=== PATIENT | male | born 1955 ===

== ENCOUNTER 2021-02-15 01:21 | Outpatient (CLI) | payer MEDICARE, BC | END 2021-02-15 01:22 | disposition critical access hospital (66) | LOC: EMS 01:21 | DX: R41.0 Disorientation, unspecified (principal); S80.212A Abrasion, left knee, initial encounter; S80.211A Abrasion, right knee, initial encounter; S60.512A Abrasion of left hand, initial encounter; S60.511A Abrasion of right hand, initial encounter; S00.81XA Abrasion of other part of head, initial encounter; W18.30XA Fall on same level, unspecified, initial encounter; Y92.414 Local residential or business street as the place of occurrence of the external cause | CPT/HCPCS: A0425; A0429 ==

== ENCOUNTER 2021-02-15 01:44 | Inpatient (IN) | payer MEDICARE, BC ==
[2021-02-15 02:06] LABS: BASOPHILS % (AUTO) 0.6 %; EOSINOPHILS % (AUTO) 0.8 %; HCT - HEMATOCRIT 38.2 % (42.0-52.0); LYMPHOCYTES # (AUTO) 0.6 10^3/uL (1.5-3.5); LYMPHOCYTES % (AUTO) 13.4 %; MEAN CORPUSCULAR HEMOGLOBIN 33.9 pg (27.0-31.0); MEAN CORPUSCULAR VOLUME 99.7 fL (80.0-94.0); MEAN PLATELET VOLUME 10.7 fL (7.4-11.4); MONOCYTES # (AUTO) 0.6 10^3/uL (0.0-1.0); MONOCYTES % (AUTO) 13.2 %; NEUTROPHILS # (AUTO) 3.4 10^3/uL (1.5-6.6); NEUTROPHILS % (AUTO) 71.8 %; PLT - PLATELET COUNT 81 10^3/uL (130-450); RED BLOOD COUNT 3.83 10^6/uL (4.70-6.10); RED CELL DISTRIBUTION WIDTH 12.3 % (12.0-15.0); WHITE BLOOD COUNT 4.8 x10^3/uL (4.8-10.8)
[2021-02-15] MEDS ORDERED: THIAMINE 100 MG/1 ML 2 ML MDV ONE (02:25)
[2021-02-15] MEDS ORDERED: FOLIC ACID 5 MG/1 ML 10ML MDV ONE (02:26)
[2021-02-15] MEDS ORDERED: LORazepam 2 MG/ML VIAL IVP STA ×4 (03:48→08:36)
[2021-02-15 03:56] LABS: ALBUMIN 3.9 g/dL (3.2-5.5); ALBUMIN/GLOBULIN RATIO 1.1 (1.0-2.2); BILIRUBIN,TOTAL 2.6 mg/dL (0.2-1.0); CALCIUM 8.9 mg/dL (8.5-10.3); POTASSIUM 3.7 mmol/L (3.5-5.0); TOTAL PROTEIN 7.4 g/dL (6.7-8.2)
[2021-02-15] MEDS ORDERED: LORazepam 2 MG/ML VIAL ONE (03:57)
[2021-02-15 04:02] LABS: MUDS CUTOFF CONCENTRATIONS CUTOFF CONC BELOW:
[2021-02-15 04:03] LABS: CLARITY,URINE CLEAR (CLEAR)
[2021-02-15 04:04] LABS: AMPHETAMINE SCREEN,URINE NEGATIVE (NEGATIVE); BARBITURATE SCREEN,UR NEGATIVE (NEGATIVE); BENZODIAZEPINES SCREEN, URINE POSITIVE (NEGATIVE); BILIRUBIN,URINE NEGATIVE (NEGATIVE); COCAINE SCREEN URINE NEGATIVE (NEGATIVE); GLUCOSE, URINE (UA) NEGATIVE (NEGATIVE); KETONES,URINE (UA) TRACE mg/dL (NEGATIVE); LEUKOCYTE ESTERASE, URINE NEGATIVE (NEGATIVE); METHADONE SCREEN, URINE NEGATIVE (NEGATIVE); METHAMPHETAMINES SCREEN, URINE NEGATIVE (NEGATIVE); NITRITE,URINE NEGATIVE (NEGATIVE); OCCULT BLOOD,URINE NEGATIVE (NEGATIVE); OPIATE SCREEN, URINE NEGATIVE (NEGATIVE); OXYCODONE SCREEN, URINE NEGATIVE (NEGATIVE); PH,URINE 6.5 PH (5.0-7.5); PROPOXYPHENE SCREEN, URINE NEGATIVE (NEGATIVE); PROTEIN,URINE NEGATIVE (NEGATIVE); THC CANNABINOID SCREEN, URINE NEGATIVE (NEGATIVE); TRICYCLIC ANTIDEPRESSANT,URINE NEGATIVE (NEGATIVE); UROBILINOGEN,URINE 4 E.U./dL (NORMAL)
--- NOTE | 2021-02-15 04:43 | ED Physician Documentation ---
History of Present Illness - Stated complaint Stated Complaint: ETOH/ HEAD INJ - Chief complaint Chief Complaint: Laceration - History obtained from History obtained from: Patient, EMS - History of Present Illness Timing: Today - Additonal information Additional information: 65-year-old male is brought to the emergency department today by ambulance after he left the [facility] center in [place]. He is unable to tell us how long he has been there or what he is doing there. Is apparently getting treatment for alcohol and he voluntarily left the facility was found outside having fallen and injured himself. He comes into the emergency department with scrapes on his knees his feet his arms and his face. He denies any loss of consciousness. Review of Systems Unable to obtain: Confused Constitutional: denies: Fever Eyes: denies: Decreased vision Ears: denies: Ear pain Nose: denies: Congestion Throat: denies: Sore throat Cardiac: denies: Chest pain / pressure, Palpitations Respiratory: denies: Dyspnea GI: denies: Abdominal Pain, Nausea, Vomiting, Constipation, Diarrhea : denies: Dysuria, Frequency Skin: denies: Rash Musculoskeletal: denies: Neck pain, Back pain, Extremity pain PD PAST MEDICAL HISTORY - Present Medications Home Medications: Ambulatory Orders Medication Instructions Recorded Confirmed Home Medications Unobtainable 02/15/21 02/15/21 [HOME MEDICATIONS UNOBTAINABLE] - Allergies Allergies/Adverse Reactions: Allergies Allergy/AdvReac Type Severity Reaction Status Date / Time No Known Drug Allergies Allergy Verified 02/15/21 01:59 - Social History Does the pt smoke?: No Smoking Status: Unknown if ever smoked PD ED PE NORMAL - Vitals Vital signs reviewed: Yes (tachycardic and hypertensive ) - General General: No acute distress, Well developed/nourished, Other (thinks he's in [place]. There is some speech latency and some delay in execution of motor commands. When he arrives he does not have the shakes and he develops this during the visit consistent with alochol withdrawal. 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 2-12 intact, No motor deficit, No sensory deficit, Normal speech Eye Opening: Spontaneous Motor: Obeys Commands Verbal: Confused GCS Score: 14 - Psych Psych: Normal mood, Normal affect Results - Vitals Vitals: Vital Signs - 24 hr 02/15/21 02/15/21 02/15/21 01:45 02:10 04:00 Temperature 35.8 C L Heart Rate 112 H 110 H 103 H Respiratory 20 17 Rate Blood Pressure 137/97 H 141/101 H 155/97 H O2 Saturation 95 94 98 02/15/21 02/15/21 02/15/21 04:15 04:35 04:50 Temperature 36.8 C Heart Rate 98 89 114 H Respiratory 16 17 17 Rate Blood Pressure 155/97 H 155/97 H 139/99 H O2 Saturation 97 100 99 02/15/21 02/15/21 02/15/21 05:00 05:12 05:21 Temperature 36.8 C Heart Rate 99 96 92 Respiratory 17 19 22 Rate Blood Pressure 131/92 H 139/100 H 139/100 H O2 Saturation 96 96 96 02/15/21 02/15/21 02/15/21 05:30 05:51 06:00 Temperature Heart Rate 100 101 H 115 H Respiratory 17 20 22 Rate Blood Pressure 131/92 H 135/82 H 135/82 H O2 Saturation 97 98 96 02/15/21 02/15/21 02/15/21 06:24 06:34 06:57 Temperature 36.0 C L 36.9 C Heart Rate 113 H 105 H 125 H Respiratory 24 23 21 Rate Blood Pressure 135/82 H 126/85 H 126/85 H O2 Saturation 97 97 96 02/15/21 02/15/21 07:06 07:15 Temperature 36.8 C Heart Rate 117 H 103 H Respiratory 22 18 Rate Blood Pressure 106/68 106/68 O2 Saturation 95 95 Oxygen O2 Source Room air - Labs Labs: Laboratory Tests 02/15/21 02/15/21 02/15/21 01:57 01:57 01:57 WBC 4.8 RBC 3.83 L Hgb 13.0 L Hct 38.2 L MCV 99.7 H MCH 33.9 H MCHC 34.0 RDW 12.3 Plt Count 81 L MPV 10.7 Neut # (Auto) 3.4 Lymph # (Auto) 0.6 L [place] # (Auto) 0.6 Eos # (Auto) 0.0 Baso # (Auto) 0.0 Absolute Nucleated RBC 0.00 Nucleated RBC % 0.0 Sodium 135 Potassium 3.7 Chloride 96 L Carbon Dioxide 25 Anion Gap 14.0 H BUN 22 H Creatinine 1.0 Estimated GFR (MDRD) 75 L Glucose 147 H Calcium 8.9 Total Bilirubin 2.6 H AST 154 H ALT 96 H Alkaline Phosphatase 53 Total Protein 7.4 Albumin 3.9 Globulin 3.5 Albumin/Globulin Ratio 1.1 Lipase 32 Urine Color Urine Clarity Urine pH Ur Specific [place] Urine Protein Urine Glucose (UA) Urine Ketones Urine Occult Blood Urine Nitrite Urine Bilirubin Urine Urobilinogen Ur Leukocyte Esterase Ur Microscopic Review Urine Culture Comments Urine Opiates Screen Ur Oxycodone Screen Urine Methadone Screen Ur Propoxyphene Screen Ur Barbiturates Screen Ur Tricyclics Screen Ur Phencyclidine Scrn Ur Amphetamine Screen U Methamphetamines Scrn U Benzodiazepines Scrn Urine Cocaine Screen U Cannabinoids Screen Ethyl Alcohol < 5.0 02/15/21 03:12 WBC RBC Hgb Hct MCV MCH MCHC RDW Plt Count MPV Neut # (Auto) Lymph # (Auto) [place] # (Auto) Eos # (Auto) Baso # (Auto) Absolute Nucleated RBC Nucleated RBC % Sodium Potassium Chloride Carbon Dioxide Anion Gap BUN Creatinine Estimated GFR (MDRD) Glucose Calcium Total Bilirubin AST ALT Alkaline Phosphatase Total Protein Albumin Globulin Albumin/Globulin Ratio Lipase Urine Color YELLOW Urine Clarity CLEAR Urine pH 6.5 Ur Specific [place] 1.015 Urine Protein NEGATIVE Urine Glucose (UA) NEGATIVE Urine Ketones TRACE Urine Occult Blood NEGATIVE Urine Nitrite NEGATIVE Urine Bilirubin NEGATIVE Urine Urobilinogen 4 H Ur Leukocyte Esterase NEGATIVE Ur Microscopic Review NOT INDICATED Urine Culture Comments NOT INDICATED Urine Opiates Screen NEGATIVE Ur Oxycodone Screen NEGATIVE Urine Methadone Screen NEGATIVE Ur Propoxyphene Screen NEGATIVE Ur Barbiturates Screen NEGATIVE Ur Tricyclics Screen NEGATIVE Ur Phencyclidine Scrn NEGATIVE Ur Amphetamine Screen NEGATIVE U Methamphetamines Scrn NEGATIVE U Benzodiazepines Scrn POSITIVE H Urine Cocaine Screen NEGATIVE U Cannabinoids Screen NEGATIVE Ethyl Alcohol - Rads (name of study) CT head Radiology: Prelim report reviewed (Impression: No acute intracranial findings. Right facial soft tissue swelling.), EMP read indepedently, See rad report CT cervical spine Radiology: Prelim report reviewed (Impression: No acute findings.), EMP read indepedently, See rad report CT maxillofacial bones Radiology: Prelim report reviewed (Impression: No facial bone fracture. Right facial soft tissue swelling. Multifocal chronic appearing sinus mucosal thickening.), EMP read indepedently, See rad report PD MEDICAL DECISION MAKING - ED course Complexity details: reviewed results, re-evaluated patient, considered differential, d/w patient ED course: 65-year-old male who is undergoing treatment for alcohol withdrawal at the [facility] has eloped from the center and he is very unsteady on his feet, he has fallen. He has abrasions to his shoulder, his knees, his arms, and his face. In the emergency department blood work is obtained and a CT of his head neck and maxillofacial bones is obtained. These are without evidence of fracture. The patient on initial presentation is unable to give any significant history he does state that he does not live on [facility] and that he has a daughter who lives in [place]. He does indicate to the nurse that he drinks about half a gallon of alcohol per day. During his stay in the emergency department he developed significant shaking and this has the appearance of obvious alcohol withdrawal. He also is hallucinating. Periodically will see people coming out of the cabinets. He is very unsteady on his feet he attempts to get up to go to the bathroom and is a two-person assist. I do not believe that he will do well at the treatment center and I believe hospitalization for withdrawal is indicated. He is administered a banana bag IV and ativan IV. He is fully immunized. He will require an ICU bed as he will need to be restrained. This morning we do not have an ICU bed and he is administered IM zyprexa. ICU beds not available and the patient is boarded in the ED. At shift change care is turned over to Dr. Munoz. Departure - Departure Clinical Impression: Abrasion, Alcohol withdrawal delirium, acute, mixed level of activity Injury of head and neck Qualifiers: Encounter type: initial encounter Qualified Code(s): S09.90XA - Unspecified injury of head, initial encounter Condition: Serious
[2021-02-15] MEDS ORDERED: FOLIC ACID INJ 1 MG, THIAMINE INJ 100 MG, MAGNESIUM SULFATE 2 GM, MULTIVITAMIN 10 ML in... IV STA ×5 (04:50)
[2021-02-15] MEDS ORDERED: OLANZapine 10 MG VIAL IM STA (06:05)
[2021-02-15 07:31] LABS: B. PARAPERTUSSIS- RESP PCR PAN NOT DETECTED; B. PERTUSSIS- RESP PCR PANEL NOT DETECTED; C. PNEUMONIAE- RESP PCR PANEL NOT DETECTED; CORONAVIRUS 229E-RESP PCR NOT DETECTED; CORONAVIRUS HKU1-RESP PCR NOT DETECTED; CORONAVIRUS NL63-RESP PCR NOT DETECTED; CORONAVIRUS OC43-RESP PCR NOT DETECTED; HUMAN METAPNEUMOVIRUS NOT DETECTED; INFLUENZA A- RESP PCR PANEL NOT DETECTED; INFLUENZA B - RESP PCR PANEL NOT DETECTED; M. PNEUMONIAE- RESP PCR PANEL NOT DETECTED; PARAINFLUENZA VIRUS 1 NOT DETECTED; PARAINFLUENZA VIRUS 2 NOT DETECTED; PARAINFLUENZA VIRUS 3 NOT DETECTED; PARAINFLUENZA VIRUS 4 NOT DETECTED; RHINOVIRUS/ENTEROVIRUS NOT DETECTED; RSV- RESP PCR PANEL NOT DETECTED; SARS-CoV-2 -RESP PCR PANEL NOT DETECTED
--- NOTE | 2021-02-15 07:40 | CT Report ---
PROCEDURE: HEAD WO INDICATIONS: head injury confusion TECHNIQUE: Noncontrast 4.5 mm thick angled axial sections acquired from the foramen magnum to the vertex. For r adiation dose reduction, the following was used: automated exposure control, adjustment of mA and/or kV according to patient size. COMPARISON: None. FINDINGS: Image quality: Excellent. CSF spaces: Basal cisterns are patent. No extra-axial fluid collections. Ventricles are normal in size and shape. Brain: No midline shift. No intracranial masses or hemorrhage. Crooks-white matter interface is norm al. Age-related volume loss and moderate small vessel ischemic change. Skull and face: Calvarium and visualized facial bones are intact, without suspicious lesions. Right cheek superficial hematoma. Sinuses: Visualized sinuses and mastoids are clear. IMPRESSION: 1. Right cheek hematoma. 2. No evidence of significant intracranial sequelae of acute trauma. 3. Age-related volume loss and moderate small vessel ischemic change. 4. No evidence acute stroke, hemorrhage, or mass. Findings are concordant with preliminary interpretation provided by [facility]. Reviewed by: Jonathan Harris MD on 02/15/2021 7:38 AM PDT Approved by: Jonathan Harris MD on 02/15/2021 7:38 AM PDT Station ID: [id number]
--- NOTE | 2021-02-15 07:41 | CT Report ---
PROCEDURE: CERVICAL SPINE WO INDICATIONS: head injury confusion TECHNIQUE: Noncontrast 3 mm thick sections acquired from the skull base to the T4 level. Sagittal and coronal r eformats were then constructed. For radiation dose reduction, the following was used: automated exp osure control, adjustment of mA and/or kV according to patient size. COMPARISON: None. FINDINGS: Image quality: Excellent. Bones: No fractures or dislocations. Visualized superior ribs are intact. Cervical spondylitic foster nge. Multilevel uncovertebral joint hypertrophy results in multilevel foraminal narrowing bilaterally . Cervical facet arthropathy is most noted at the right C3-C4 facet. Soft tissues: Prevertebral soft tissues are normal in thickness. No paravertebral hematomas. No ap ical pneumothoraces. IMPRESSION: 1. No evidence acute cervical fracture or dislocation. 2. Cervical spondylitic change. Findings are concordant with preliminary interpretation provided by [facility]. Reviewed by: Jonathan Harris MD on 02/15/2021 7:40 AM PDT Approved by: Jonathan Harris MD on 02/15/2021 7:40 AM PDT Station ID: [id number]
--- NOTE | 2021-02-15 07:45 | CT Report ---
PROCEDURE: MAXILLOFACIAL WO INDICATIONS: head injury confusion TECHNIQUE: Noncontrast 1.5 mm thick axial images acquired from the mandible through the frontal sinuses, with co madison and sagittal reformatting. For radiation dose reduction, the following was used: automated ex posure control, adjustment of mA and/or kV according to patient size. COMPARISON: None. FINDINGS: Image quality: Excellent. Bones and teeth: Orbital nino are intact. Sinus nino show no fracture or deformity. Nasal bones and septum are intact. Visualized portions of the mandible demonstrate no fractures or subluxation. Zygomatic arches are intact. Pterygoid plates are intact. Visualized portions of the skull base an d auditory canals are intact. Sinuses: Small air-fluid level present in the right maxillary sinus. Bilateral maxillary sinus mild m ucosal thickening. Mild patchy bilateral ethmoid disease. Mild right frontal sinus mucosal thickening . Mastoid air cells are aerated. Soft tissues: Right cheek swelling, consider hematoma versus cellulitic change. No edema, masses, or fluid collections. No enlarged lymph nodes. No soft tissue lacerations or debris. Vascular: Visualized vascular structures appear normal in the absence of contrast. Bony vascular fo ramina and canals are intact. IMPRESSION: 1. No evidence of facial bone fracture or mandibular fracture. 2. Right cheek swelling. 3. Chronic sinus disease with mild acute right maxillary sinusitis. Findings are concordant with preliminary interpretation provided by [facility]. Reviewed by: Jonathan Harris MD on 02/15/2021 7:43 AM PDT Approved by: Jonathan Harris MD on 02/15/2021 7:43 AM PDT Station ID: [id number]
[2021-02-15] MEDS ORDERED: LACTATED RINGERS 1,000 ML IV STA (08:09)
[2021-02-15 08:34] LABS: MAGNESIUM 1.7 mg/dL (1.7-2.8); PHOSPHORUS 2.6 mg/dL (2.5-4.6)
[2021-02-15] MEDS ORDERED: LORazepam 2 MG/ML VIAL IVP ONE (08:36)
--- NOTE | 2021-02-15 08:51 | ED Physician Documentation ---
ED Addendum - Addendum Addendum: 02/15/21 08:48 [id number]: Care of this patient was turned over from Dr. 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 On evaluation at the bedside he was hallucinating and unable to respond to any questions. He was tachycardic with a heart rate in the low 100s. Blood pressure was above 100 systolic. He was mildly agitated. I had a lengthy phone conversation with the who tells me that she took him to the detox center in [place] 4 days ago at 4 PM after admission they talked to him several times and he seemed to be a little disoriented and then yesterday he got very angry on the phone telling his that he wanted to leave and to come pick him up. She refused and he apparently at some point during the night took off out the side door of the treatment center and was brought here by police escort. She reports a history of A. fib that they believe was related to alcohol withdrawal and also undergoing hospitalization for 3 days for alcohol withdrawal detox 2 or 3 years ago. She said even after she brought him home from that hospitalization he was in bad shape took him 4 to 5 days to recover he was falling and she had to help him up from the floor multiple times. No history of seizures or hallucinations that she is aware of. She says he has been drinking 1.7 L of alcohol in approximately 48-hour period for at least 2 years has had a heavy drinking alcohol history for the past 15 years. He is not taking any prescription medications for any medical diagnoses. Family history significant for his father dying of an DC. I discussed with the his extremely tenuous situation he is meeting several criteria that would place him in a category diagnosis of delirium tremens. He has received repeated doses of Ativan here and I have written for another Ativan dosing and reached out to pharmacy to see if the CIWA protocol can be converted for use in the emergency department rather than just ICU. We have no ICU beds here available at [facility] so we are beginning a search for ICU beds at other surrounding facilities. 02/15/21 11:00 Patient with run of V-tach on monitor. Amiodarone started. He has calmed considerably after furhter Ativan dosing. Have reached out to hospitalist as we have had an ICU bed open up and awaiting call back. 02/15/21 12:06 Nursing staff approached me that his right hand is swelling there is noted to be some abrasions. Very tender over the third MCP joint. X-rays been ordered. Dr. Austin has accepted the patient for admission. 02/15/21 18:27 EKG: Much artifact; some p waves evident; QRS wide; non-specific ST changes. Departure - Departure Disposition: 64 [facility] DC/Xfer Clinical Impression: Abrasion, Alcohol withdrawal delirium, acute, mixed level of activity Injury of head and neck Qualifiers: Encounter type: initial encounter Qualified Code(s): S09.90XA - Unspecified injury of head, initial encounter Condition: Serious Discharge Date/Time: 02/15/21 14:01
[2021-02-15 08:53] LABS: BASOPHILS % (AUTO) 0.4 %; EOSINOPHILS % (AUTO) 0.7 %; HCT - HEMATOCRIT 38.8 % (42.0-52.0); HGB - HEMOGLOBIN 13.1 g/dL (14.0-18.0); LYMPHOCYTES # (AUTO) 0.6 10^3/uL (1.5-3.5); LYMPHOCYTES % (AUTO) 13.2 %; MEAN CORPUSCULAR HEMOGLOBIN 33.9 pg (27.0-31.0); MEAN CORPUSCULAR HGB CONC 33.8 g/dL (32.0-36.0); MEAN CORPUSCULAR VOLUME 100.3 fL (80.0-94.0); MEAN PLATELET VOLUME 10.7 fL (7.4-11.4); MONOCYTES # (AUTO) 0.6 10^3/uL (0.0-1.0); MONOCYTES % (AUTO) 12.8 %; NEUTROPHILS # (AUTO) 3.2 10^3/uL (1.5-6.6); NEUTROPHILS % (AUTO) 72.7 %; PLT - PLATELET COUNT 73 10^3/uL (130-450); RED BLOOD COUNT 3.87 10^6/uL (4.70-6.10); RED CELL DISTRIBUTION WIDTH 12.4 % (12.0-15.0); WHITE BLOOD COUNT 4.5 x10^3/uL (4.8-10.8)
[2021-02-15 08:59] LABS: INR 1.2 (0.8-1.2); PT - PROTHROMBIN TIME 12.9 secs (9.9-12.6)
[2021-02-15] MEDS ORDERED: MULTIVITAMIN 10 ML, THIAMINE INJ 100 MG, FOLIC ACID INJ 1 MG in SODIUM CHLORIDE 0.9% 1,... IV SCH (09:00)
[2021-02-15 09:06] LABS: ALBUMIN 3.8 g/dL (3.2-5.5); ALBUMIN/GLOBULIN RATIO 1.1 (1.0-2.2); BILIRUBIN,TOTAL 2.2 mg/dL (0.2-1.0); CALCIUM 8.7 mg/dL (8.5-10.3); CREATININE 0.8 mg/dL (0.6-1.2); POTASSIUM 3.8 mmol/L (3.5-5.0); TOTAL PROTEIN 7.2 g/dL (6.7-8.2)
[2021-02-15] MEDS ORDERED: AMIODARONE 150 MG/100 ML 100 ML IV ONE (10:59)
[2021-02-15] MEDS ORDERED: AMIODARONE 360 MG/200 ML 200 ML IV ONE (11:09)
--- NOTE | 2021-02-15 12:42 | XRAY Report ---
PROCEDURE: Hand 3 View RT INDICATIONS: R hand pain TECHNIQUE: 3 views of the hand(s) acquired. Hand is in a somewhat clenched position. COMPARISON: None. FINDINGS: Bones: Possible cortical step-off of the fifth metacarpal base seen only on the lateral projection. N o dislocation. No suspicious bony lesions. Soft tissues: No suspicious soft tissue calcifications. IMPRESSION: Possible fifth metacarpal base fracture. Consider repeat radiographs or short term follow-up radiographs. Reviewed by: Wesley Hernandez MD on 02/15/2021 11:41 AM CAROL Approved by: Wesley Hernandez MD on 02/15/2021 11:41 AM CAROL Station ID: [id number]
[2021-02-15] MEDS ORDERED: ACETAMINOPHEN 325 MG TABLET PO PRN (13:08)
[2021-02-15] MEDS ORDERED: SODIUM CHLORIDE FLUSH 0.9% 10 ML SYRINGE IVP PRN (13:08)
[2021-02-15] MEDS ORDERED: ONDANSETRON 4 MG/2 ML VIAL IVP PRN (13:08)
[2021-02-15] MEDS ORDERED: ONDANSETRON ODT 4 MG TABLET TL PRN (13:08)
[2021-02-15 13:49] LABS: INR 1.1 (0.8-1.2); PT - PROTHROMBIN TIME 12.5 secs (9.9-12.6)
[2021-02-15 13:54] LABS: MUDS CUTOFF CONCENTRATIONS CUTOFF CONC BELOW:
[2021-02-15 14:16] LABS: AMPHETAMINE SCREEN,URINE NEGATIVE (NEGATIVE); BARBITURATE SCREEN,UR NEGATIVE (NEGATIVE); BENZODIAZEPINES SCREEN, URINE POSITIVE (NEGATIVE); COCAINE SCREEN URINE NEGATIVE (NEGATIVE); METHADONE SCREEN, URINE NEGATIVE (NEGATIVE); METHAMPHETAMINES SCREEN, URINE NEGATIVE (NEGATIVE); OPIATE SCREEN, URINE NEGATIVE (NEGATIVE); OXYCODONE SCREEN, URINE NEGATIVE (NEGATIVE); PROPOXYPHENE SCREEN, URINE NEGATIVE (NEGATIVE); THC CANNABINOID SCREEN, URINE NEGATIVE (NEGATIVE); TRICYCLIC ANTIDEPRESSANT,URINE NEGATIVE (NEGATIVE)
[2021-02-15] MEDS: LORazepam 2 MG/ML VIAL IVP PRN ×3 (15:45→19:39)
[2021-02-15] MEDS: SODIUM CHLORIDE FLUSH 0.9% 10 ML SYRINGE IVP SCH (15:45)
--- NOTE | 2021-02-15 18:01 | HISTORY & PHYSICAL EXAMINATION ---
Chief Complaint - Chief Complaint Chief Complaint: confused and shaking History of Present Illness - Admitted From Admitted From:: ICU floor - History Obtained From Records Reviewed: [facility] History obtained from: [facility], ER report Exam Limitations: pt is confused, he could not provide hx - History of Present Illness HPI Comment/Other: This is a 65- years old male with a medical history significant for alcoholism. pt was brought to ER by police escort. pt still is confused, and shaking. He could not provide medical history at this time. Per ER's notes, pt's report pt has been detox center in [place] 4 days ago. On yesterday pt got very angry and telling his that he wanted to leave, and asking his to come pick him up. His refused to pick him up. It appear pt left detox center on last night. EKG was not in [facility] yet. Per ER's report, Patient developed V- tach on monitor and Amiodarone was started by ER. Multiple vitamin banana bag was already started as well. Routine laboratory tests that show patient had elevated liver enzyme and slightly elevated creatinine kinase. COVID-[address] of the head show no evidence of significant intracranial sequelae of acute trauma, No evidence of acute cervical fracture or dislocation, No evidence of facial bone fracture, Possible fifth metacarpal base fracture on right hand.In ER, initially patient show tachycardia, 137/97 blood pressure, without tachypnea. pt is admitted to ICU with Amiodarone IV drop. History - Past Medical History Cardiovascular: reports: Atrial fibrillation Neuro: reports: Tremors - Family & Social History Family History Comment/Other: pt confused, can not provide family hx Meds/Allgy - Home Medications Home Medications: Ambulatory Orders Medication Instructions Recorded Confirmed Home Medications Unobtainable 02/15/21 02/15/21 [HOME MEDICATIONS UNOBTAINABLE] - Allergies Allergies/Adverse Reactions: Allergies Allergy/AdvReac Type Severity Reaction Status Date / Time No Known Drug Allergies Allergy Verified 02/15/21 01:59 Review of Systems - Cardiovascular Cariovascular: denies: Palpitations, Chest pain - Respiratory Respiratory: denies: Cough - Gastrointestinal Gastrointestinal: denies: Abdominal pain, Nausea, Vomiting - Other Findings Other Findings: pt can not provide further ROS because of his confused Exam - Vital Signs Vital Signs: Vital Signs x48h Temp Pulse Pulse Resp BP BP Pulse Ox 02/15/21 17:00 99 13 134/84 H 98 02/15/21 16:15 83 25 H 128/90 H 98 02/15/21 16:10 81 19 127/91 H 96 02/15/21 15:32 36.6 C 77 17 115/75 97 02/15/21 14:11 36.6 C 80 18 120/77 97 02/15/21 13:30 77 17 123/78 97 02/15/21 13:00 36.6 C 92 16 123/78 98 02/15/21 12:26 37.0 C 65 16 134/96 H 100 02/15/21 11:59 36.7 C 70 16 132/85 H 98 02/15/21 11:30 36.6 C 75 18 127/78 02/15/21 11:00 36.5 C 76 16 149/85 H 99 02/15/21 10:30 36.5 C 67 12 115/75 94 02/15/21 10:00 36.8 C 78 14 117/77 95 - Physical Exam General Appearance: positive: Alert, Mild distress. negative: Lethargic Eyes Bilateral: positive: Normal inspection, No lid inflammation ENT: positive: ENT inspection nml, No signs of dehydration. negative: Purulent nasal drainage Neck: positive: Nml inspection, Trachea midline. negative: Tracheal deviation Respiratory: positive: Chest non-tender, No respiratory distress. negative: Wheezes Cardiovascular: positive: Regular rate & rhythm, No murmur. negative: Tachycardia, Bradycardia, Systolic murmur Peripheral Pulses: positive: 2+ Abdomen: positive: Non-tender, Nml bowel sounds. negative: Tenderness Back: positive: Nml inspection Skin: positive: Color nml, Warm. negative: Cyanosis, Diaphoresis Extremities: positive: Non-tender. negative: Calf tenderness Neurologic/Psychiatric: positive: Sensation nml. negative: Weakness, Sensory loss, Facial droop, Slurred/abnml speech Sepsis Event Note (H) - Evaluation Current Stage of Sepsis: Ruled out Conclusion/Plan - Problem List (1) Alcohol withdrawal delirium, acute, mixed level of activity Conclusion/Plan: pt present confused with Hallucination, and shaking. pt just left alcohol detox center. CT of head show no evidence of intracranial sequelea. we will put pt ICU, neuro check, check Ammonia level, start IV of multiple vitamins including Vitamin B1, folic acid. start with CIWA protocol, ativan PRN (2) Alcohol abuse Conclusion/Plan: pt has hx of alcohol abuse, he just left alcohol detox center. we start CIWA protocol in hospital, consult with director social to help control of his alcohol abuse. (3) Tachycardia Conclusion/Plan: Patient present with V-T in ER, ER provider started with Amiodarone drop. TSH is normal arrange. In ICU, pt's EKG show Sinus rhythm with RRRB. We will athletic monitor patient, finish Amiodarone drop, then we will adjust medications, such as IV Metoprolol PRN to control his rhythm. (4) Elevated liver enzymes Conclusion/Plan: Patient had elevated liver enzyme, likely caused by his alcohol abuse. We will continue senior laboratory technician. Consult with social work, hope patient could control or quit his alcohol abuse (5) Abrasion Conclusion/Plan: Patient presents bruising and abrasions. CT of the head, neck, Facial Show no acute fracture, Or dislocation. Right hand show possible fifth metacarpal base fracture. continue pain control, Fall precaution - Lab Results Fish Bones: 02/16/21 04:58 02/16/21 04:58 Core Measures - Anticipated LOS I expect patient to be DC'd or transferred within 96 hours.: Yes - DVT/VTE - Prophylaxis VTE/DVT Device ordered at admit?: Yes VTE/DVT Prophylaxis med ordered at admit?: Yes
[2021-02-15] MEDS: AMIODARONE 360 MG/200 ML 200 ML IV SCH (18:09)
--- NOTE | 2021-02-15 19:15 | XRAY Report ---
PROCEDURE: Chest 1 View X-Ray INDICATIONS: sob TECHNIQUE: One view of the chest was acquired. COMPARISON: None. FINDINGS: Surgical changes and devices: None. Lungs and pleura: No pleural effusions or pneumothorax. Lungs are clear. Low lung volumes. Mediastinum: Mediastinal contours appear normal. Heart size is normal. Bones and chest wall: No suspicious bony lesions. Overlying soft tissues appear unremarkable. IMPRESSION: No acute cardiopulmonary abnormality. Low lung volumes. Reviewed by: Wesley Hernandez MD on 02/15/2021 6:13 PM CARLO Approved by: Wesley Hernandez MD on 02/15/2021 6:13 PM CAROL Station ID: [id number]
[2021-02-15] MEDS: DEXMEDETOMIDINE 400 MCG/100 ML 100 ML IV PRN (22:22)
[2021-02-16] MEDS: SODIUM CHLORIDE FLUSH 0.9% 10 ML SYRINGE IVP SCH ×4 (04:46→23:44)
[2021-02-16] MEDS: AMIODARONE 360 MG/200 ML 200 ML IV SCH (05:20)
[2021-02-16] MEDS: DEXMEDETOMIDINE 400 MCG/100 ML 100 ML IV PRN (05:28)
[2021-02-16 05:38] LABS: BASOPHILS % (AUTO) 0.5 %; EOSINOPHILS # (AUTO) 0.1 10^3/uL (0.0-0.7); EOSINOPHILS % (AUTO) 1.8 %; HCT - HEMATOCRIT 38.7 % (42.0-52.0); HGB - HEMOGLOBIN 13.1 g/dL (14.0-18.0); LYMPHOCYTES # (AUTO) 0.7 10^3/uL (1.5-3.5); LYMPHOCYTES % (AUTO) 15.2 %; MEAN CORPUSCULAR HEMOGLOBIN 33.4 pg (27.0-31.0); MEAN CORPUSCULAR HGB CONC 33.9 g/dL (32.0-36.0); MEAN CORPUSCULAR VOLUME 98.7 fL (80.0-94.0); MEAN PLATELET VOLUME 10.7 fL (7.4-11.4); MONOCYTES # (AUTO) 0.5 10^3/uL (0.0-1.0); MONOCYTES % (AUTO) 12.2 %; NEUTROPHILS # (AUTO) 3.1 10^3/uL (1.5-6.6); NEUTROPHILS % (AUTO) 69.8 %; PLT - PLATELET COUNT 91 10^3/uL (130-450); RED BLOOD COUNT 3.92 10^6/uL (4.70-6.10); RED CELL DISTRIBUTION WIDTH 12.3 % (12.0-15.0); WHITE BLOOD COUNT 4.4 x10^3/uL (4.8-10.8)
[2021-02-16 05:48] LABS: ALBUMIN 3.5 g/dL (3.2-5.5); ALBUMIN/GLOBULIN RATIO 1.1 (1.0-2.2); BILIRUBIN,TOTAL 1.8 mg/dL (0.2-1.0); CALCIUM 8.6 mg/dL (8.5-10.3); CREATININE 0.7 mg/dL (0.6-1.2); MAGNESIUM 1.7 mg/dL (1.7-2.8); POTASSIUM 3.7 mmol/L (3.5-5.0); TOTAL PROTEIN 6.7 g/dL (6.7-8.2)
[2021-02-16] MEDS ORDERED: MULTIVITAMIN 10 ML, THIAMINE INJ 100 MG, FOLIC ACID INJ 1 MG in SODIUM CHLORIDE 0.9% 1,... IV SCH (09:00)
[2021-02-16] MEDS: chlordiazePOXIDE 25 MG CAPSULE PO SCH ×3 (11:00→23:43)
[2021-02-16] MEDS: polyethylene glycoL 3350 17 GM PACKET PO SCH (11:00)
[2021-02-16] MEDS: oxyCODONE 5 MG TABLET PO PRN ×2 (13:16→23:44)
--- NOTE | 2021-02-16 14:50 | PROVIDER PROGRESS NOTE ---
Assessment/Plan - Problem List (1) Alcohol withdrawal delirium, acute, mixed level of activity Assessment/Plan: 02/16 improved. agitation and shaking is subsided, continue IV of multiple vitamin including B-1 and folic acid, switch to Librium, Continue CIWA protocol pt present confused with Hallucination, and shaking. pt just left alcohol detox center. CT of head show no evidence of intracranial [place]. we will put pt ICU, neuro check, check Ammonia level, start IV of multiple vitamins including Vitamin B1, folic acid. start with CIWA protocol, ativan PRN (2) Alcohol abuse Conclusion/Plan: 02/16 Improved, will continue manage of alcohol withdrawal, With Librium and CIWA protocol with Ativan as needed, B-1 and folic acid for pt, Consult with social work for help of alcohol Quit pt has hx of alcohol abuse, he just left alcohol detox center. we start CIWA protocol in hospital, consult with neonatal social worker to help control of his alcohol abuse. (3) Tachycardia Conclusion/Plan: 02/16 resolved, Hold Amiodarone, patient may return medical floor Patient present with V-T in ER, ER provider started with Amiodarone drop. TSH is normal arrange. In ICU, pt's EKG show Sinus rhythm with RRRB. We will cardiac monitor patient, finish Amiodarone drop, then we will adjust medications, such as IV Metoprolol PRN to control his rhythm. (4) Elevated liver enzymes Conclusion/Plan: 02/16 Improved, continue research laboratory specialist Patient had elevated liver enzyme, likely caused by his alcohol abuse. We will continue research laboratory specialist. Consult with social work, hope patient could control or quit his alcohol abuse (5) Abrasion Conclusion/Plan: Patient presents bruising and abrasions. CT of the head, neck, Facial Show no acute fracture, Or dislocation. Right hand show possible fifth metacarpal base fracture. continue pain control, Fall precaution - Current Meds Current Meds: Current Medications Generic Name Dose Route Start Last Admin Trade Name Freq PRN Reason Stop Dose Admin Chlordiazepoxide HCl 50 mg 02/16/21 11:00 02/16/21 11:00 Chlordiazepoxide 25 Mg Capsule PO 50 mg Q6HR MICHELLE Administration Multivitamins 10 ml/ Thiamine 1,011.2 mls @ 100 mls/hr 02/16/21 09:00 02/16/21 11:07 HCl 100 mg/ Folic Acid 1 mg/ IV 02/16/21 21:00 100 mls/hr Sodium Chloride DAILY MICHELLE Infusion Lorazepam 2 mg 02/15/21 13:10 02/15/21 19:39 Lorazepam 2 Mg/Ml Vial IVP 2 mg Q30M PRN Administration CIWA >8 Protocol Oxycodone HCl 5 mg 02/15/21 13:08 02/16/21 13:16 Oxycodone 5 Mg Tablet PO 5 mg Q4HR PRN Administration Pain 5 to 7 Polyethylene Glycol 17 gm 02/16/21 10:00 02/16/21 11:00 Polyethylene Glycol 3350 17 Gm Packet PO 17 gm DAILY MICHELLE Administration Sodium Chloride 10 ml 02/15/21 17:00 02/16/21 10:54 Sodium Chloride Flush 0.9% 10 Ml Syringe IVP Not Given 0100,0900,1700 MICHELLE - Lab Result Fish Bone Diagrams: 02/16/21 04:58 02/16/21 04:58 - Additional Planning My Orders: My Active Orders 02/16/21 07:30 Neuro Check [RC] QSHIFT 02/16/21 14:41 Telemetry (24 Hour) [RC] Q4HR 02/17/21 05:00 CMP [COMPREHENSIVE METABOLIC PANEL] [CHEM] DAILYLAB 02/18/21 05:00 CMP [COMPREHENSIVE METABOLIC PANEL] [CHEM] DAILYLAB 02/19/21 05:00 CMP [COMPREHENSIVE METABOLIC PANEL] [CHEM] DAILYLAB 02/20/21 05:00 CMP [COMPREHENSIVE METABOLIC PANEL] [CHEM] DAILYLAB 02/21/21 05:00 CMP [COMPREHENSIVE METABOLIC PANEL] [CHEM] DAILYLAB Subjective - Subjective Nursing Reports: Confused Objective Vital Signs: Vital Signs - 24 hr 02/15/21 02/15/21 02/15/21 15:32 16:10 16:15 Temperature 36.6 C Heart Rate [ 77 81 83 Monitoring electrodes] Respiratory 17 19 25 H Rate Blood Pressure 115/75 127/91 H 128/90 H [Right Brachial artery] O2 Saturation 97 96 98 02/15/21 02/15/21 02/15/21 17:00 18:00 18:13 Temperature Heart Rate [ 99 89 99 Monitoring electrodes] Respiratory 13 25 H 29 H Rate Blood Pressure 134/84 H 158/103 H 113/94 H [Right Brachial artery] O2 Saturation 98 98 96 02/15/21 02/15/21 02/15/21 19:07 20:00 21:00 Temperature 37.4 C Heart Rate [ 87 98 85 Monitoring electrodes] Respiratory 20 24 22 Rate Blood Pressure 135/102 H 125/80 111/81 H [Right Brachial artery] O2 Saturation 96 95 93 02/15/21 02/15/21 02/16/21 22:00 23:00 00:00 Temperature Heart Rate [ 89 86 94 Monitoring electrodes] Respiratory 20 20 27 H Rate Blood Pressure 117/90 H 128/104 H 127/86 H [Right Brachial artery] O2 Saturation 96 96 95 02/16/21 02/16/21 02/16/21 01:00 01:56 03:00 Temperature 36.8 C Heart Rate [ 64 65 60 Monitoring electrodes] Respiratory 21 18 Rate Blood Pressure 105/72 109/75 111/71 [Right Brachial artery] O2 Saturation 95 99 96 02/16/21 02/16/21 02/16/21 04:00 05:00 06:00 Temperature 36.7 C Heart Rate [ 60 56 L 56 L Monitoring electrodes] Respiratory 16 17 16 Rate Blood Pressure 112/71 119/76 116/75 [Right Brachial artery] O2 Saturation 94 94 95 02/16/21 02/16/21 02/16/21 07:00 08:00 08:26 Temperature 36.6 C Heart Rate [ 54 L 57 L Monitoring electrodes] Respiratory 19 17 Rate Blood Pressure 111/71 112/73 [Right Brachial artery] O2 Saturation 93 93 02/16/21 02/16/21 02/16/21 09:00 10:00 11:00 Temperature Heart Rate [ 56 L 53 L 61 Monitoring electrodes] Respiratory 13 12 11 L Rate Blood Pressure 97/74 99/71 111/90 H [Right Brachial artery] O2 Saturation 94 94 97 02/16/21 02/16/21 02/16/21 12:00 13:00 14:00 Temperature 36.6 C Heart Rate [ 60 68 69 Monitoring electrodes] Respiratory 19 18 15 Rate Blood Pressure 99/70 92/61 91/57 L [Right Brachial artery] O2 Saturation 96 02/16/21 14:31 Temperature Heart Rate [ Monitoring electrodes] Respiratory 16 Rate Blood Pressure [Right Brachial artery] O2 Saturation 95 Oxygen O2 Source Room air I&O (Last 24 Hrs): Intake and Output Totals x24h 02/14/21 02/15/21 02/16/21 23:59 23:59 23:59 Intake Total 2123.607 1570.684 Output Total 150 100 Balance 6234.608 2113.684 General: Alert, No acute distress HEENT: Atraumatic Neck: Supple Lymphatic: no adenopathy Neuro: Alert, Non Focal Cardiovascular: Regular rate, Normal S1, Normal S2 Respiratory: Chest non-tender, No respiratory distress Abdomen: Normal bowel sounds, Soft Extremities: Normal pulses - Results Results: Laboratory Results WBC 4.4 x10^3/uL (4.8-10.8) L 02/16/21 04:58 RBC 3.92 10^6/uL (4.70-6.10) L 02/16/21 04:58 Hgb 13.1 g/dL (14.0-18.0) L 02/16/21 04:58 Hct 38.7 % (42.0-52.0) L 02/16/21 04:58 MCV 98.7 fL (80.0-94.0) H 02/16/21 04:58 MCH 33.4 pg (27.0-31.0) H 02/16/21 04:58 MCHC 33.9 g/dL (32.0-36.0) 02/16/21 04:58 RDW 12.3 % (12.0-15.0) 02/16/21 04:58 Plt Count 91 10^3/uL (130-450) L 02/16/21 04:58 MPV 10.7 fL (7.4-11.4) 02/16/21 04:58 Neut # (Auto) 3.1 10^3/uL (1.5-6.6) 02/16/21 04:58 Lymph # (Auto) 0.7 10^3/uL (1.5-3.5) L 02/16/21 04:58 [place] # (Auto) 0.5 10^3/uL (0.0-1.0) 02/16/21 04:58 Eos # (Auto) 0.1 10^3/uL (0.0-0.7) 02/16/21 04:58 Baso # (Auto) 0.0 10^3/uL (0.0-0.1) 02/16/21 04:58 Absolute Nucleated RBC 0.00 x10^3/uL 02/16/21 04:58 Nucleated RBC % 0.0 /100WBC 02/16/21 04:58 PT 12.5 secs (9.9-12.6) 02/15/21 13:29 INR 1.1 (0.8-1.2) 02/15/21 13:29 Sodium 139 mmol/L (135-145) 02/16/21 04:58 Potassium 3.7 mmol/L (3.5-5.0) 02/16/21 04:58 Chloride 101 mmol/L (101-111) 02/16/21 04:58 Carbon Dioxide 24 mmol/L (21-32) 02/16/21 04:58 Anion Gap 14.0 (6-13) H 02/16/21 04:58 BUN 14 mg/dL (6-20) 02/16/21 04:58 Creatinine 0.7 mg/dL (0.6-1.2) 02/16/21 04:58 Estimated GFR (MDRD) 112 (>89) 02/16/21 04:58 Glucose 108 mg/dL (70-100) H 02/16/21 04:58 POC Whole Bld Glucose 137 mg/dL (70 - 100) H 02/16/21 11:59 Calcium 8.6 mg/dL (8.5-10.3) 02/16/21 04:58 Phosphorus 5.1 mg/dL (2.5-4.6) H 02/16/21 04:58 Magnesium 1.7 mg/dL (1.7-2.8) 02/16/21 04:58 Total Bilirubin 1.8 mg/dL (0.2-1.0) H 02/16/21 04:58 AST 105 IU/L (10-42) H 02/16/21 04:58 ALT 76 IU/L (10-60) H 02/16/21 04:58 Alkaline Phosphatase 46 IU/L (42-121) 02/16/21 04:58 Ammonia 26.2 umol/L (7-35) 02/15/21 19:06 Total Creatine Kinase 341 IU/L (22-269) H 02/16/21 04:58 Total Protein 6.7 g/dL (6.7-8.2) 02/16/21 04:58 Albumin 3.5 g/dL (3.2-5.5) 02/16/21 04:58 Globulin 3.2 g/dL (2.1-4.2) 02/16/21 04:58 Albumin/Globulin Ratio 1.1 (1.0-2.2) 02/16/21 04:58 Lipase 32 U/L (22-51) 02/15/21 01:57 Urine Color YELLOW 02/15/21 03:12 Urine Clarity CLEAR (CLEAR) 02/15/21 03:12 Urine pH 6.5 PH (5.0-7.5) 02/15/21 03:12 Ur Specific [place] 1.015 (1.002-1.030) 02/15/21 03:12 Urine Protein NEGATIVE mg/dL (NEGATIVE) 02/15/21 03:12 Urine Glucose (UA) NEGATIVE mg/dL (NEGATIVE) 02/15/21 03:12 Urine Ketones TRACE mg/dL (NEGATIVE) 02/15/21 03:12 Urine Occult Blood NEGATIVE (NEGATIVE) 02/15/21 03:12 Urine Nitrite NEGATIVE (NEGATIVE) 02/15/21 03:12 Urine Bilirubin NEGATIVE (NEGATIVE) 02/15/21 03:12 Urine Urobilinogen 4 E.U./dL (NORMAL) H 02/15/21 03:12 Ur Leukocyte Esterase NEGATIVE (NEGATIVE) 02/15/21 03:12 Ur Microscopic Review NOT INDICATED 02/15/21 03:12 Urine Culture Comments NOT INDICATED 02/15/21 03:12 Nasal Adenovirus (PCR) NOT DETECTED 02/15/21 06:00 Nasal B. parapertussis DNA (PCR) NOT DETECTED 02/15/21 06:00 Nasal Coronavir 229E PCR NOT DETECTED 02/15/21 06:00 Nasal Coronavir HKU1 PCR NOT DETECTED 02/15/21 06:00 Nasal Coronavir NL63 PCR NOT DETECTED 02/15/21 06:00 Nasal Coronavir OC43 PCR NOT DETECTED 02/15/21 06:00 Nasal Enterovir/Rhinovir PCR NOT DETECTED 02/15/21 06:00 Nasal Influenza B PCR NOT DETECTED 02/15/21 06:00 Nasal Influenza A PCR NOT DETECTED 02/15/21 06:00 Nasal Parainfluen 1 PCR NOT DETECTED 02/15/21 06:00 Nasal Parainfluen 2 PCR NOT DETECTED 02/15/21 06:00 Nasal Parainfluen 3 PCR NOT DETECTED 02/15/21 06:00 Nasal Parainfluen 4 PCR NOT DETECTED 02/15/21 06:00 Nasal RSV (PCR) NOT DETECTED 02/15/21 06:00 Nasal Screen MRSA (PCR) NEGATIVE (NEGATIVE) 02/15/21 16:15 Nasal B.pertussis DNA PCR NOT DETECTED 02/15/21 06:00 Nasal C.pneumoniae (PCR) NOT DETECTED 02/15/21 06:00 Tony Human Metapneumo PCR NOT DETECTED 02/15/21 06:00 Nasal M.pneumoniae (PCR) NOT DETECTED 02/15/21 06:00 Nasal SARS-CoV-2 (PCR) NOT DETECTED 02/15/21 06:00 Urine Opiates Screen NEGATIVE (NEGATIVE) 02/15/21 13:46 Ur Oxycodone Screen NEGATIVE (NEGATIVE) 02/15/21 13:46 Urine Methadone Screen NEGATIVE (NEGATIVE) 02/15/21 13:46 Ur Propoxyphene Screen NEGATIVE (NEGATIVE) 02/15/21 13:46 Ur Barbiturates Screen NEGATIVE (NEGATIVE) 02/15/21 13:46 Ur Tricyclics Screen NEGATIVE (NEGATIVE) 02/15/21 13:46 Ur Phencyclidine Scrn NEGATIVE (NEGATIVE) 02/15/21 13:46 Ur Amphetamine Screen NEGATIVE (NEGATIVE) 02/15/21 13:46 U Methamphetamines Scrn NEGATIVE (NEGATIVE) 02/15/21 13:46 U Benzodiazepines Scrn POSITIVE (NEGATIVE) H 02/15/21 13:46 Urine Cocaine Screen NEGATIVE (NEGATIVE) 02/15/21 13:46 U Cannabinoids Screen NEGATIVE (NEGATIVE) 02/15/21 13:46 Ethyl Alcohol < 5.0 mg/dL 02/15/21 01:57 Sepsis Event Note (H) - Evaluation Current Stage of Sepsis: Ruled out ABX Reporting Has patient been on IV antibiotics over the past 48 hours?: No Current Medications - Current Medications Current Medications: Active Medications Acetaminophen (Acetaminophen 325 Mg Tablet) 650 mg PO Q4HR PRN PRN Reason: Pain 1 to 4 Chlordiazepoxide HCl (Chlordiazepoxide 25 Mg Capsule) 50 mg PO Q6HR MICHELLE Last Admin: 02/16/21 11:00 Dose: 50 mg Documented by: Multivitamins 10 ml/ Thiamine HCl 100 mg/ Folic Acid 1 mg/Sodium Chloride 1,011.2 mls @ 100 mls/hr IV DAILY MICHELLE Stop: 02/16/21 21:00 Last Infusion: 02/16/21 11:07 Dose: 100 mls/hr Documented by: Lorazepam (Lorazepam 2 Mg/Ml Vial) 2 mg IVP Q30M PRN; Protocol PRN Reason: CIWA >8 Last Admin: 02/15/21 19:39 Dose: 2 mg Documented by: Multivitamins (Multivitamin Tablet) 1 tab PO DAILYWM [facility] Ondansetron HCl (Ondansetron Odt 4 Mg Tablet) 4 mg TL Q6HR PRN PRN Reason: Nausea / Vomiting Ondansetron HCl (Ondansetron 4 Mg/2 Ml Vial) 4 mg IVP Q6HR PRN PRN Reason: Nausea / Vomiting Oxycodone HCl (Oxycodone 5 Mg Tablet) 5 mg PO Q4HR PRN PRN Reason: Pain 5 to 7 Last Admin: 02/16/21 13:16 Dose: 5 mg Documented by: Polyethylene Glycol (Polyethylene Glycol 3350 17 Gm Packet) 17 gm PO DAILY [facility] Last Admin: 02/16/21 11:00 Dose: 17 gm Documented by: Sodium Chloride (Sodium Chloride Flush 0.9% 10 Ml Syringe) 10 ml IVP PRN PRN PRN Reason: NEEDED PER PROVIDER ORDERS Sodium Chloride (Sodium Chloride Flush 0.9% 10 Ml Syringe) 10 ml IVP 0100,0900,1700 [facility] Last Admin: 02/16/21 10:54 Dose: Not Given Documented by: Thiamine HCl (Thiamine 100 Mg Tablet) 100 mg PO DAILY [facility] Home Medications Unobtainable [HOME MEDICATIONS UNOBTAINABLE] 02/15/21
--- NOTE | 2021-02-16 18:40 | Discharge Plan ---
Discharge Plan Problem Reviewed?: Yes Diet: Regular Activity Restrictions: Activity as Tolerated Shower Restrictions: No (fall precaution) No Smoking: If you smoke, Please STOP! Call for help. Disposition: 06 Home Health Service Condition: Fair Instruction Topics: Abuse Alcohol [employer], Withdrawal Alcohol What Expect, ED Withdrawal Alcohol Health Concerns: alcohol abuse Plan of Treatment: you want to be d/c to home and clearly make the plan to quit alcohol at home. social worker delinquency prevention help you find some resource to help you quit alcohol. we are prescribed and vitamin B1 to help you. Care Goals: quit alcohol Assessment: discussed with you the care plan to quit alcohol, you made the commitment to quit. Additional Instructions or Follow Up instructions: You may followup with your PCP in 2 weeks.
[2021-02-17 06:05] LABS: BASOPHILS % (AUTO) 0.7 %; EOSINOPHILS # (AUTO) 0.1 10^3/uL (0.0-0.7); EOSINOPHILS % (AUTO) 2.8 %; HGB - HEMOGLOBIN 12.9 g/dL (14.0-18.0); LYMPHOCYTES # (AUTO) 0.7 10^3/uL (1.5-3.5); LYMPHOCYTES % (AUTO) 15.6 %; MEAN CORPUSCULAR HEMOGLOBIN 33.8 pg (27.0-31.0); MEAN CORPUSCULAR HGB CONC 33.9 g/dL (32.0-36.0); MEAN CORPUSCULAR VOLUME 99.5 fL (80.0-94.0); MEAN PLATELET VOLUME 10.7 fL (7.4-11.4); MONOCYTES # (AUTO) 0.7 10^3/uL (0.0-1.0); MONOCYTES % (AUTO) 16.7 %; NEUTROPHILS # (AUTO) 2.8 10^3/uL (1.5-6.6); PLT - PLATELET COUNT 109 10^3/uL (130-450); RED BLOOD COUNT 3.82 10^6/uL (4.70-6.10); RED CELL DISTRIBUTION WIDTH 12.5 % (12.0-15.0); WHITE BLOOD COUNT 4.4 x10^3/uL (4.8-10.8)
[2021-02-17 06:19] LABS: ALBUMIN 3.2 g/dL (3.2-5.5); CALCIUM 8.2 mg/dL (8.5-10.3); CREATININE 0.9 mg/dL (0.6-1.2); POTASSIUM 3.4 mmol/L (3.5-5.0); TOTAL PROTEIN 6.5 g/dL (6.7-8.2)
--- NOTE | 2021-02-17 07:28 | DISCHARGE SUMMARY ---
"Discharge Summary Admit Date: 02/15/21 Discharge Date: 02/17/21 Discharging Provider: Betzaida Austin MD Code Status: Attempt Resuscitation Condition at Discharge: Fair Discharge Disposition: 06 Home Health Service - DIAGNOSES Discharge Diagnoses with Status of Each Condition: 1. Alcohol withdrawal delirium, acute, mixed level of activity 2. Alcohol abuse 3. Wide-complex tachycardia in the emergency room that resolved after 6 beats 4. Alcoholic hepatitis 5. Multiple abrasions due to fall on ground 6. Chronic atrial fibrillation - HPI History of Present Illness: This is a 65- years old male with a medical history significant for alcoholism. pt was brought to ER by police escort. pt still is confused, and shaking. He could not provide medical history at this time. Per ER's notes, pt's report pt has been detox center in [place] 4 days ago. On yesterday pt got very angry and telling his that he wanted to leave, and asking his to come pick him up. His refused to pick him up. It appear pt left detox center on last night. EKG was not in [facility] yet. Per ER's report, Patient developed V- tach on monitor and Amiodarone was started by ER. Multiple vitamin banana bag was already started as well. Routine laboratory tests that show patient had elevated liver enzyme and slightly elevated creatinine kinase. COVID-[address] of the head show no evidence of significant intracranial sequelae of acute trauma, No evidence of acute cervical fracture or dislocation, No evidence of facial bone fracture, Possible fifth metacarpal base fracture on right hand.In ER, initially patient show tachycardia, 137/97 blood pressure, without tachypnea. pt is admitted to ICU with Amiodarone IV drop. Past Medical History Cardiovascular: reports: Atrial fibrillation Neuro: reports: Tremors - CONSULTS | PROCEDURES Procedures: Head CT with right cheek hematoma, no evidence of significant intracranial sequela of acute trauma. Age-related volume loss and moderate small vessel ischemic change. No evidence of stroke, hemorrhage, or mass. Cervical spine CT without C-spine fracture or dislocation. Cervical spondylitic changes noted. Facial bone CT without facial bone fracture or mandible fracture. Right cheek swelling. Chronic sinus disease with mild acute right maxillary sinus. Hand x-ray of right hand due to swelling and pain showed possible fifth metacarpal base fracture. Chest x-ray without acute cardiopulmonary abnormality. Low lung volumes. - HOSPITAL COURSE Hospital Course: The patient was placed on CIWA protocol and given as needed Ativan as well as fixed dose of Librium. He did not want to be here. Made many statements to the fact that he should not be here. He was also given thiamine, folic acid via banana bag and then oral vitamins. During his stay blood pressure was either normal or mildly hypotensive. Heart rate was controlled. At night during sleep he was mildly bradycardic into the 50s. He and his family negotiated over many conversations over the phone about where he would go. He did not want to go back to rehab. His family was insistent that he did. Social work was very helpful in expediting the conversation. On the day of discharge the patient is to go home. He then change his mind and stated that he has agreed to go to an inpatient rehab facility. He will need to go back to the facility in [place] to then facilitate inpatient therapy from there. Or he can go home and family can make arrangements that way. Social work is involved in the case and guiding his alcohol rehab care. He was evaluated for possible involuntary hold and he does not have criteria for detainment. At discharge temperature was 36.9. Heart rate 96. Blood pressure 138/89. Respirations 18. 92% on room air. He is 5 foot 9 inches tall and weighs 85.5 kg. Neck has shotty adenopathy but is supple without goiter or bruit. Lungs are clear to auscultation and percussion. PMI is normally placed with a regular rate and rhythm. The abdomen is soft, nontender. There is no right upper quadrant pain. No fluid wave. Extremities over his forearms, hands, knees have abrasions from where he fell on the ground. His right fifth finger is deformed from the fracture.He is alert and oriented to person place and time. Can explain to me in layman terms why he came here and why he is leaving. He has no tremors, no diaphoresis, no tachycardia. He states he feels pretty good. At discharge liver enzymes continue to be elevated with a total bili of 2.0. AST 81. ALT 65. On admission those numbers were 2.6, 154, 96 respectively. Urine tox urine was only positive for benzodiazepines. Greater than 30 minutes was spent coordinating discharge - ALLERGIES Allergies/Adverse Reactions: Allergies Allergy/AdvReac Type Severity Reaction Status Date / Time No Known Drug Allergies Allergy Verified 02/15/21 01:59 - MEDICATIONS Home Medications: Ambulatory Orders Medication Instructions Recorded Confirmed Multivitamin [Theragran] 1 tab PO DAILYWM tablet 02/17/21 Thiamine [Vitamin B-1] 100 mg PO DAILY tablet 02/17/21 - LABS Result Diagrams: 02/17/21 05:40 02/17/21 05:40 - SEPSIS Current Stage of Sepsis: Ruled out"
[2021-02-17] MEDS: chlordiazePOXIDE 25 MG CAPSULE PO SCH (07:46)
[2021-02-17] MEDS ORDERED: MULTIVITAMIN TABLET PO SCH (08:00)
[2021-02-17] MEDS: polyethylene glycoL 3350 17 GM PACKET PO SCH (08:21)
[2021-02-17] MEDS: SODIUM CHLORIDE FLUSH 0.9% 10 ML SYRINGE IVP SCH (08:22)
[2021-02-17] MEDS ORDERED: THIAMINE 100 MG TABLET PO SCH (09:00)
[2021-02-17 11:11] VITALS: BP 112/51
== END 2021-02-17 13:55 | disposition home health service (06) | DRG 897 ==
LOC: ED 01:44 → MS2 13:08 → ICU 15:36 → MS2 02-16 20:08
PROVIDERS: ADMIT Nurse Practitioner Gerontology; ATTEND Specialist
DX: F10.231 Alcohol dependence with withdrawal delirium (principal); S09.90XA Unspecified injury of head, initial encounter; S40.219A Abrasion of unspecified shoulder, initial encounter; S40.812A Abrasion of left upper arm, initial encounter; I48.20 Chronic atrial fibrillation, unspecified; R44.3 Hallucinations, unspecified; S40.811A Abrasion of right upper arm, initial encounter; S00.81XA Abrasion of other part of head, initial encounter; R00.0 Tachycardia, unspecified; Z20.822 Contact with and (suspected) exposure to COVID-19; K70.10 Alcoholic hepatitis without ascites; R44.1 Visual hallucinations; W19.XXXA Unspecified fall, initial encounter; S00.83XA Contusion of other part of head, initial encounter; Y92.89 Other specified places as the place of occurrence of the external cause; S80.212A Abrasion, left knee, initial encounter; S50.812A Abrasion of left forearm, initial encounter; S50.811A Abrasion of right forearm, initial encounter; S60.512A Abrasion of left hand, initial encounter; S60.511A Abrasion of right hand, initial encounter; S80.211A Abrasion, right knee, initial encounter; Z78.1 Physical restraint status; S62.316A Displaced fracture of base of fifth metacarpal bone, right hand, initial encounter for closed fracture; R74.8 Abnormal levels of other serum enzymes
CPT/HCPCS: 36415; 70450; 70486; 71045; 72125; 73130; 80053; 80306; 81003; 82140; 82550; 83690; 83735; 84100; 85025; 85610; 87150; 87631; 93005; 96361; 96365; 96372; 96375; 96376; 99284; 99285; A9270; G0480; J0282; J2060; J3411; J7120; 0202U; 80320; 81001; 87086